=== PATIENT | female | born 2000 | race Two or more races ===

== ENCOUNTER → 2025-01-06 | Outpatient (CLI) | payer OTHER ==
[~2025-01-06] MED LIST: ONDA-282 PO
[2025-01-06 18:52] LABS: FOLLICLE STIMULATING HORMONE 5.9 mIU/ML; THYROID STIMULATING HORMONE 1.469 uIU/ML (0.55-4.78)
[2025-01-06 18:53] LABS: LUTEINIZING HORMONE 1.1 mIU/ML
[2025-01-06 18:54] LABS: ESTRADIOL 35.9 PG/ML; PROLACTIN 6.53 NG/ML
[2025-01-06 18:55] LABS: FREE T4 1.31 NG/DL (0.89-1.76); PROGESTERONE 0.76 NG/ML
[2025-01-06 19:24] LABS: HEMOGLOBIN A1c 5.3 % (4.0-6.0)
== END ==
LOC: M PLALAB 14:33
PROVIDERS: ATTEND Nurse Practitioner Family
DX: N91.1 Secondary amenorrhea (principal); Z31.69 Encounter for other general counseling and advice on procreation

== ENCOUNTER → 2025-01-14 | Outpatient (CLI) | payer OTHER | LOC: M RAD 12:36 | PROVIDERS: ATTEND Nurse Practitioner Family | DX: N91.1 Secondary amenorrhea (principal); N83.01 Follicular cyst of right ovary; N83.02 Follicular cyst of left ovary ==

== ENCOUNTER → 2025-06-16 | Outpatient (CLI) | payer OTHER | LOC: M RADPRO 12:04 | PROVIDERS: ATTEND Obstetrics & Gynecology | DX: N97.9 Female infertility, unspecified (principal) ==

== ENCOUNTER 2025-08-18 07:40 | Emergency (ER) | payer OTHER ==
[~2025-08-18] VITALS: Ht 165.1 cm; Wt 74.1 kg
[2025-08-18] MEDS ORDERED: MULTTAB20 PO (07:48)
[2025-08-18 08:22] LABS: BASO # 0.1 10^3/uL (0.0-0.2); BASO % 0.7 % (0.0-1.0); EOS # 0.2 10^3/uL (0.0-0.5); EOS % 1.9 % (0.0-3.0); LYMPH # 2.0 10^3/uL (1.5-5.0); LYMPH % 21.6 % (24.0-44.0); MONO # 0.6 10^3/uL (0.0-0.8); MONO % 6.5 % (2.0-8.0); NEUTROPHILS # 6.3 10^3/uL (1.5-8.5); NEUTROPHILS % 69.1 % (36.0-66.0); PLATELET COUNT, AUTOMATED 460 10^3/uL (150-450)
[2025-08-18 08:44] LABS: CALCIUM LEVEL 8.8 MG/DL (8.5-10.1); CARBON DIOXIDE LEVEL 23 MMOL/L (20-31); CHLORIDE LEVEL 108 MMOL/L (98-107); CREATININE FOR GFR 0.55 MG/DL (0.55-1.30); GLOMERULAR FILTRATION RATE > 90.0 (>60); HCG, SERUM QUANTITATIVE 2.8 MIU/ML (<4.2); POTASSIUM SERUM 3.8 MMOL/L (3.5-5.1); SODIUM LEVEL 142 MMOL/L (136-145)
[2025-08-18] MEDS: ONDANSETRON 4MG ORAL DISINTEGRATING TAB PO ONE (10:45)
[2025-08-18 10:55] VITALS: BP 101/67; O2SAT 99
[2025-08-18 11:36] VITALS: TEMP 97.8
[2025-08-18 11:37] LABS: KETONE, URINE AUTO RFX NEGATIVE (NEGATIVE); LEUKOCYTE ESTERASE UR AUTO RFX NEGATIVE (NEGATIVE); NITRITE, URINE AUTO RFX NEGATIVE (NEGATIVE); RBC, URINE AUTO RFX 3 /HPF (0-3); SQUAM EPITHELIAL CELL UR AURFX 2 /HPF (0-6); WBC, URINE AUTO RFX 1 /HPF (0-3)
== END 2025-08-18 11:38 | disposition home or self-care (01) ==
LOC: M ED 07:40
DX: Z32.00 Encounter for pregnancy test, result unknown (principal)